=== PATIENT | male | born 1945 | race Caucasian/White ===

== ENCOUNTER 2017-10-19 17:58 | Inpatient (IN) | payer OTHER, MEDICARE ==
--- NOTE | 2017-10-19 18:30 | GHP ---
[f rep st] HISTORY AND PHYSICAL DATE OF ADMISSION: 10/19/2017 The patient is a 72-year-old male who had a prior colectomy and presented with an incisional ventral hernia. He had it repaired with Dr. Martínez today at the [facility] [place]. In addition to the known hernia, he was found to have several [place] cheese-like weaknesses along his incision and his he rnia repair became more extensive than originally planned. He was set up to go home, however, due to unmanaged pain, the decision was made to keep him overnight for pain management purposes. PAST MEDICAL HISTORY: Includes diverticulosis, status post partial colon resection; benign prostatic hypertrophy; hyperlipidemia; history of melanoma; history of memory loss; migraines; nontoxic multin odular goiter; obstructive sleep apnea; peptic ulcer disease; right rotator cuff repair. MEDICATIONS: Include Atrovent, Cialis, tamsulosin, and Valtrex. ALLERGIES: Sulfa. FAMILY HISTORY: Patient is . He works in the [employer] industry. His works in the [employer]. He does not smoke. REVIEW OF SYSTEMS: A 10-point review of systems negative aside from that in the HPI and past medical history. PHYSICAL EXAMINATION: GENERAL: Reveals a well-developed, well-nourished 72-year-old male in no acut e distress. HEENT: Normocephalic, atraumatic. Mucous membranes moist. No scleral icterus. CHEST: Clear to auscultation bilaterally. CARDIAC: Regular rate and rhythm. ABDOMEN: Soft with fresh w ell dressed incision. No shadowing. EXTREMITIES: Warm and dry. IMPRESSION: This is a 72-year-old male status post planned outpatient ventral hernia today who will be admitted for pain management. PLAN: Plan is to admit the patient for pain management. He will likely be able to go home in the ms rning. We will order IV anti-inflammatories and narcotics as needed as well as oral narcotics. He m ay have a regular diet. Dr. Martínez is aware of the admission and has seen the patient today. /[id number]/MODL
[2017-10-19] MEDS: KETOROLAC 15 MG/1 ML SDV IVP SCH ×2 (19:57→23:17)
[2017-10-19] MEDS: DOCUSATE SODIUM 100 MG CAP PO SCH (19:59)
[2017-10-19] MEDS: D5W 1/2 NS W/ 20 KCl/L 1,000 ML IV SCH (20:04)
[2017-10-19] MEDS: OXYCODONE/APAP 5/325 TAB PO PRN (22:29)
[2017-10-19] MEDS: HYDROmorphone HCL/NS/PF 0.4 MG/2 ML SYR IVP PRN (22:34)
[2017-10-20] MEDS: OXYCODONE/APAP 5/325 TAB PO PRN ×5 (00:49→20:08)
[2017-10-20] MEDS: HYDROmorphone HCL/NS/PF 0.4 MG/2 ML SYR IVP PRN ×3 (00:50→21:13)
[2017-10-20] MEDS: CYCLOBENZAPRINE 10 MG TAB PO PRN ×3 (02:59→17:16)
[2017-10-20] MEDS ORDERED: NALOXONE HCL 0.4 MG/ML INJ IVP PRN (03:03)
[2017-10-20] MEDS ORDERED: HYDROmorphONE/DILAUDID 6 MG/30 ML PCA IV PRN (03:03)
[2017-10-20] MEDS: ONDANSETRON 4 MG/2 ML VIAL IVP PRN ×3 (03:58→17:09)
[2017-10-20] MEDS: KETOROLAC 15 MG/1 ML SDV IVP SCH ×4 (06:15→23:52)
[2017-10-20] MEDS: DOCUSATE SODIUM 100 MG CAP PO SCH ×2 (08:35→20:14)
--- NOTE | 2017-10-20 11:44 | SOAPPROG ---
SOAP Progress Note Assessment/Plan: Assessment: 72-year-old male status post ventral hernia repair yesterday, admitted for pain control. 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 Patient reports he is still having episodic crampy abdominal pain. He did tolerate a small amount of regular breakfast. He denies fevers. Vital signs within normal limits Physical exam pleasant male in some mild discomfort during cramping episode, in chair Abdomen nondistended bandage dry soft to palpation. Plan: Possible discharge later today although pain control seems to be an issue still , will see the patient later today and follow-up on whether he tolerated lunch. 10/20/17 11:41 Objective: Vital Signs Temp Pulse Resp BP Pulse Ox 36.2 C 61 15 128/82 H 90 L 10/20/17 11:28 10/20/17 11:28 10/20/17 11:28 10/20/17 11:28 10/20/17 11:28 10/19/17 10/20/17 10/21/17 05:59 05:59 05:59 Intake Total 600 Output Total 1450 Balance -850 ICD10 Worksheet Patient Problems: Problems Problem Status Onset Hernia Acute - ICD10 Problem Qualifiers (1) Hernia
--- NOTE | 2017-10-20 12:07 | ASMTCASEMG ---
Living Arrangements What is your living Answers: With Spouse arrangement? Who do you live with? Type Of Residence What kind of residence do Answers: House you live in? Discharge Plan Comments Coordination Status Comments Notes: Pt is a 72 y/o man admitted for pain management post surgery open ventral hernia. Pt will most likely d/c when medically stable. No therapies ordered at this time. CM available for changes. Plan: Independent Date Signed: 10/20/2017 12:07 PM Electronically Signed By:BRAYAN Griffin
[2017-10-20] MEDS: D5W 1/2 NS W/ 20 KCl/L 1,000 ML IV SCH (19:22)
[2017-10-21] MEDS: HYDROmorphone HCL/NS/PF 0.4 MG/2 ML SYR IVP PRN ×5 (02:45→22:16)
[2017-10-21] MEDS: OXYCODONE/APAP 5/325 TAB PO PRN (04:53)
[2017-10-21] MEDS: D5W 1/2 NS W/ 20 KCl/L 1,000 ML IV SCH (04:55)
[2017-10-21] MEDS: ONDANSETRON 4 MG/2 ML VIAL IVP PRN ×2 (05:27→09:48)
[2017-10-21] MEDS: KETOROLAC 15 MG/1 ML SDV IVP SCH ×3 (05:31→17:48)
[2017-10-21] MEDS: DOCUSATE SODIUM 100 MG CAP PO SCH ×2 (08:45→21:05)
[2017-10-21] MEDS ORDERED: ENOXAPARIN 40 MG/0.4 ML SYR SC SCH (09:00)
--- NOTE | 2017-10-21 09:26 | SOAPPROG ---
SOAP Progress Note Assessment/Plan: Assessment: still distended with nausea/ wound ok/ 2-way shows ileus/ afebrile/ uo low Plan:increase iv/ ambulate/ check labs 10/21/17 09:25 Objective: Vital Signs Temp Pulse Resp BP Pulse Ox 35.7 C L 104 H 20 143/89 H 92 10/21/17 08:12 10/21/17 08:12 10/21/17 08:12 10/21/17 08:12 10/21/17 08:12 10/20/17 10/21/17 10/22/17 05:59 05:59 05:59 Intake Total 600 3200 Output Total 1450 300 Balance -850 2900 ICD10 Worksheet Patient Problems: Problems Problem Status Onset Hernia Acute
[2017-10-21] MEDS ORDERED: D5W 1/2 NS W/ 20 KCl/L 1,000 ML IV SCH (09:30)
[2017-10-21 11:00] LABS: ALANINE AMINOTRANSFERASE 25 IU/L (21-72); ALBUMIN 3.1 g/dL (3.5-5.0); ALKALINE PHOSPHATASE 46 IU/L (38-126); AMYLASE 880 IU/L (30-110); ANION GAP 15 mEq/L (8-16); ASPARTATE AMINOTRANSFERASE 29 IU/L (17-59); BILIRUBIN,TOTAL 1.3 mg/dL (0.1-1.4); BILIRUBIN-CONJUGATED 0.5 mg/dL (0.0-0.5); BILIRUBIN-UNCONJUGATED 0.8 mg/dL (0.0-1.1); CALCIUM 9.9 mg/dL (8.5-10.4); CARBON DIOXIDE 22 mEq/l (22-31); CHLORIDE 94 mEq/L (97-110); CREATININE 1.3 mg/dL (0.7-1.3); GLOMERULAR FILTRATION RATE 54; GLUCOSE 191 mg/dL (70-100); POTASSIUM 5.3 mEq/L (3.5-5.2); SODIUM 131 mEq/L (134-144); TOTAL PROTEIN 5.3 g/dL (6.3-8.2)
[2017-10-21 12:05] LABS: % IMMATURE GRANULOCYTES 0.5 % (0.0-1.1); ABSOLUTE IMMATURE GRANULOCYTES 0.04 10^3/uL (0-0.10); HEMATOCRIT 55.6 % (40.0-51.0); HEMOGLOBIN 19.3 g/dL (13.7-17.5); MEAN CELL HEMOGLOBIN 32.5 pg (27.9-34.1); MEAN CELL HEMOGLOBIN CONC. 34.7 g/dL (32.4-36.7); MEAN CELL VOLUME 93.8 fL (81.5-99.8); MEAN PLATELET VOLUME 9.6 fL (8.7-11.7); RED BLOOD CELL COUNT 5.93 10^6/uL (4.40-6.38); RED CELL DISTRIBUTION WIDTH 12.6 % (11.5-15.2)
[2017-10-21] MEDS: PANTOPRAZOLE SODIUM 40 MG VIAL IVP SCH ×2 (12:15→21:21)
[2017-10-21] MEDS: METOCLOPRAMIDE 10 MG/2 ML VIAL IVP SCH ×3 (12:15→23:50)
[2017-10-21 12:39] LABS: LACTATE DEHYDROGENASE 658 IU/L (313-618)
[2017-10-21] MEDS ORDERED: IOPAMIDOL (ISOVUE-300) 100 ML BTL ONE (19:32)
[2017-10-21 20:55] LABS: ADD MORPH? NO; ATYPICAL LYMPHOCYTE FLAG 0 (0-99); FRAGMENT RBC FLAG 0 (0-99); HEMATOCRIT 48.6 % (40.0-51.0); LIPEMIA HEMOLYSIS FLAG 90 (0-99); MEAN CELL HEMOGLOBIN 33.1 pg (27.9-34.1); MEAN CELL VOLUME 94.6 fL (81.5-99.8); MEAN PLATELET VOLUME 10.1 fL (8.7-11.7); PLATELET CLUMPS FLAG 0 (0-99); PLATELET COUNT 212 10^3/uL (150-400); RED BLOOD CELL COUNT 5.14 10^6/uL (4.40-6.38); RED CELL DISTRIBUTION WIDTH 12.7 % (11.5-15.2)
[2017-10-21 20:57] LABS: ADD DIFF? YES; ADD SCAN? NO; LEFT SHIFT FLG 300 (0-99)
[2017-10-21] MEDS ORDERED: ALBUMIN 5% 500 ML IV ONE (21:00)
[2017-10-21 21:30] LABS: ECHINOCYTES 1+; PLATELET ESTIMATE ADEQUATE (ADEQ)
[2017-10-21] MEDS ORDERED: ERTAPENEM 1 GM VIAL IVP SCH (22:00)
[2017-10-22 04:06] LABS: % IMMATURE GRANULYOCYTES 1.5 % (0.0-1.1); ABSOLUTE IMMATURE GRANULOCYTES 0.18 10^3/uL (0.00-0.10); ADD DIFF? NO; ADD MORPH? NO; ADD SCAN? YES; ATYPICAL LYMPHOCYTE FLAG 0 (0-99); FRAGMENT RBC FLAG 0 (0-99); HEMATOCRIT 52.8 % (40.0-51.0); HEMOGLOBIN 17.3 g/dL (13.7-17.5); LIPEMIA HEMOLYSIS FLAG 80 (0-99); MEAN CELL HEMOGLOBIN 32.6 pg (27.9-34.1); MEAN CELL HEMOGLOBIN CONCENTR. 32.8 g/dL (32.4-36.7); MEAN CELL VOLUME 99.4 fL (81.5-99.8); MEAN PLATELET VOLUME 10.6 fL (8.7-11.7); PLATELET CLUMPS FLAG 70 (0-99); PLATELET COUNT 140 10^3/uL (150-400); RED BLOOD CELL COUNT 5.31 10^6/uL (4.40-6.38); RED CELL DISTRIBUTION WIDTH 12.8 % (11.5-15.2)
[2017-10-22 04:09] LABS: LEFT SHIFT FLG 300 (0-99)
[2017-10-22 04:26] VITALS: O2SAT 95
[2017-10-22 04:33] LABS: SCAN POSITIVE
[2017-10-22] MEDS ORDERED: ALBUMIN 5% 500 ML IV ONE (05:00)
[2017-10-22 05:04] LABS: ECHINOCYTES 3+; PLATELET ESTIMATE DECREASED (ADEQ)
[2017-10-22 05:52] LABS: BASE EXCESS -24.8 mEq/L (-2.5-2.5); BICARBONATE 7 mEq/L (22-26); MEASURED OXYGEN SATURATION 90 % (92-95); PCO2 35 mmHg (34-38); PO2 92 mmHg (65-75)
[2017-10-22 05:57] LABS: TCO2 9 mEq/L (23-27)
[2017-10-22] MEDS: METOCLOPRAMIDE 10 MG/2 ML VIAL IVP SCH (06:05)
[2017-10-22] MEDS: HYDROmorphone HCL/NS/PF 0.4 MG/2 ML SYR IVP PRN (06:06)
[2017-10-22 06:17] VITALS: BP 131/98; PULSE 87; RESP 28; TEMP 97.4
[2017-10-22 06:20] LABS: INR 3.8 (0.83-1.16); PROTIME(PATIENT) 37.1 SEC (12.0-15.0)
[2017-10-22 06:21] LABS: APTT 56.5 SEC (23.0-38.0)
[2017-10-22] MEDS ORDERED: PROPOFOL 200 MG/20 ML VIAL ONE (06:31)
[2017-10-22] MEDS ORDERED: KETAMINE 100 MG/10 ML SYR ONE (06:31)
[2017-10-22] MEDS ORDERED: fentaNYL 100 MCG/2 ML INJ ONE (06:31)
[2017-10-22] MEDS ORDERED: ROCURONIUM 100 MG/10 ML VIAL ONE (06:33)
[2017-10-22] MEDS ORDERED: MIDAZOLAM 2 MG/2 ML VIAL ONE (07:03)
[2017-10-22] MEDS ORDERED: HUMAN PROTHROMBIN COMPLX IV ONE (07:30)
[2017-10-22] MEDS ORDERED: [UNRECOGNIZED DRUG - OTHER] IV ONE (07:30)
[2017-10-22] MEDS ORDERED: NOREPINEPHRINE/NS 500 ML IV ONE (08:00)
[2017-10-22] MEDS ORDERED: NOREPINEPHRINE BITARTRATE 4 MG in D5W 500 ML IV SCH (08:00)
[2017-10-22 08:16] LABS: BASE EXCESS -24.3 mEq/L (-2.5-2.5); BICARBONATE 7 mEq/L (22-26); MEASURED OXYGEN SATURATION 98 % (92-95); PCO2 34 mmHg (34-38); PO2 181 mmHg (65-75)
--- NOTE | 2017-10-22 08:21 | PDANEPAE ---
ANE History of Present Illness 72 yo M in acute shock of unknown etiology, 3days s/p ventral hernia repair, to OR emergently for ex lap ANE Past Medical History - Pulmonary History Hx Oxygen in Use at Home: No Hx Sleep Apnea: No Sleep Apnea Screening Result - Last Documented: Positive - Endocrine History Hx Diabetes: No ANE Review of Systems Review of Systems: - Exercise capacity Exercise capacity: >=4 METS ANE Patient History - Allergies Allergies/Adverse Reactions: Sulfa (Sulfonamide Antibiotics) Allergy (Verified 10/19/17 17:59) - Home Medications Home medications: home medication list seen and reviewed Home Medications: Fluticasone Nasal [Flonase Nasal Russell (RX)] 1 sprays EACHNARE DAILY 10/19/17 [ Last Taken 10/19/17] Ipratropium 0.03% Nasal [Atrovent 0.03% Nasal (*)] 2 sprays EACHNARE DAILY 10/19 [Last Taken 10/19/17] Multivitamins [Multivitamin (*)] 1 each PO DAILY 10/19/17 [Last Taken 10/16/17] Naproxen Sodium [Aleve 220 MG (*)] 220 mg PO DAILY PRN 10/19/17 [Last Taken Unknown] Tamsulosin HCl [Flomax 0.4 MG (*)] 0.4 mg PO DAILY 10/19/17 [Last Taken 10/17/17 ] oxyCODONE/APAP 5/325 [Percocet 5/325 (*)] 1 - 2 tab PO Q4H PRN 10/19/17 [Last Taken Unknown] - NPO status NPO Status: no food or drink >8 hours NPO Since - Liquids (Date): 10/19/17 NPO Since - Solids (Date): 10/19/17 - Anes Hx Anes Hx: no prior problems - Smoking Hx Smoking Status: Never smoked - Family Anes Hx Family Anes Hx: none ANE Labs/Vital Signs - Labs Result Diagrams: 10/22/17 03:54 10/21/17 10:25 - Vital Signs Blood Pressure: 131/98 Heart Rate: 87 Respiratory Rate: 28 O2 Sat (%): 95 Height: 177.8 cm Weight: 73.482 kg ANE Physical Exam - Airway Neck exam: FROM Mallampati Score: Class 2 Mouth exam: normal dental/mouth exam - Pulmonary Pulmonary: no respiratory distress, clear to auscultation - Cardiovascular Cardiovascular: regular rate and rhythym ANE Anesthesia Plan Anesthesia Plan: general endotracheal anesthesia (RSI) Lines/Monitors: arterial line, central line Urgent/Emergent Case: Anes eval completed preop but documented later for safe timely pt care
[2017-10-22 08:23] LABS: TCO2 8 mEq/L (23-27)
[2017-10-22 08:26] LABS: ASSIST CONTROL YES; O2 CONCENTRATIION 100 % (0-100); P/F RATIO 181 RATIO
[2017-10-22 08:28] LABS: END TIDAL CO2 40
[2017-10-22] MEDS ORDERED: NA BICARBONATE 50 MEQ/50 ML VIAL ONE (08:53)
[2017-10-22] MEDS ORDERED: INSULIN REGULAR HUMAN 100 UNIT/ML ONE ×3 (09:54→10:11)
[2017-10-22] MEDS ORDERED: ALBUMIN 5% 500 ML BOTTLE IV ONE (09:57)
[2017-10-22] MEDS ORDERED: SODIUM BICARBONATE 150 MEQ in D5W 1,000 ML IV SCH (10:00)
[2017-10-22 10:10] LABS: ABSOLUTE NRBC COUNT 0.04 10^3/uL (0-0.01); ADD DIFF? YES; ADD MORPH? NO; ATYPICAL LYMPHOCYTE FLAG 0 (0-99); FRAGMENT RBC FLAG 0 (0-99); HEMATOCRIT 25.1 % (40.0-51.0); HEMOGLOBIN 8.4 g/dL (13.7-17.5); LIPEMIA HEMOLYSIS FLAG 80 (0-99); MEAN CELL HEMOGLOBIN 32.8 pg (27.9-34.1); MEAN CELL HEMOGLOBIN CONCENTR. 33.5 g/dL (32.4-36.7); MEAN PLATELET VOLUME 11.1 fL (8.7-11.7); NRBC-AUTO% 0.3 % (0.0-0.2); PLATELET CLUMPS FLAG 30 (0-99); PLATELET COUNT 104 10^3/uL (150-400); RED BLOOD CELL COUNT 2.56 10^6/uL (4.40-6.38)
[2017-10-22] MEDS ORDERED: AMIODARONE HCL 150 MG/100 ML BAG (1.5 MG/ML) IV ONE (10:11)
[2017-10-22 10:22] LABS: ADD SCAN? NO; LEFT SHIFT FLG 300 (0-99)
[2017-10-22 10:31] LABS: ANION GAP 16 mEq/L (8-16); CALCIUM 6.5 mg/dL (8.5-10.4); CARBON DIOXIDE 17 mEq/l (22-31); CHLORIDE 108 mEq/L (97-110); CREATININE 2.8 mg/dL (0.7-1.3); GLOMERULAR FILTRATION RATE 22; SODIUM 141 mEq/L (134-144)
[2017-10-22 10:36] LABS: GLUCOSE < 20 mg/dL (70-100)
[2017-10-22 10:40] LABS: POTASSIUM 7.3 mEq/L (3.5-5.2)
[2017-10-22 10:46] LABS: ECHINOCYTES 3+; PLATELET ESTIMATE DECREASED (ADEQ)
[2017-10-22 10:47] LABS: LARGE PLATELETS PRESENT
[2017-10-22 11:07] LABS: CALCULATED OXYGEN SATURATION 82 % (92-95); O2 CONCENTRATIION 100 % (0-100)
[2017-10-22 11:08] LABS: CALCULATED OXYGEN SATURATION 65 % (92-95); O2 CONCENTRATIION 100 % (0-100)
[2017-10-22 11:08] LABS: CALCULATED OXYGEN SATURATION 51 % (92-95); O2 CONCENTRATIION 100 % (0-100)
[2017-10-22 11:08] LABS: CALCULATED OXYGEN SATURATION 66 % (92-95); O2 CONCENTRATIION 100 % (0-100)
[2017-10-22] MEDS ORDERED: NS ONE (11:30)
[2017-10-22] MEDS ORDERED: D25W 2.5 GM/10 ML SYR IVP ONE (11:30)
[2017-10-22] MEDS ORDERED: CALCIUM CHLORIDE 1 GM/10 ML INJ ONE (11:30)
[2017-10-22] MEDS ORDERED: D5W 250 ML BAG IV ONE (11:30)
[2017-10-22] MEDS ORDERED: D50W 25 GM/50 ML SYR IVP ONE ×3 (11:30)
[2017-10-22] MEDS ORDERED: EPINEPHrine 1 MG/10 ML SYR IVP ONE ×3 (11:30)
[2017-10-22] MEDS ORDERED: AMIODARONE HCL 150 MG/3 ML VIAL ONE ×2 (11:30)
[2017-10-22] MEDS ORDERED: SODIUM BICARBONATE 50 MEQ/50 ML SYR ONE ×2 (11:30)
[2017-10-22] MEDS ORDERED: MAGNESIUM SULFATE 1 GM/2 ML VIAL ONE (11:30)
--- NOTE | 2017-10-22 11:44 | POSTANESTH ---
Post Anesthetic Evaluation Cardiovascular Status: Other, See Comment Respiratory Status: Other, See Comment Level of Consciousness/Mental Status: Other, See Comment (pt after extended ACLS)
--- NOTE | 2017-10-22 13:15 | SOAPPROG ---
SOAP Progress Note Assessment/Plan: Assessment: still distended with nausea/ wound ok/ 2-way shows ileus/ afebrile/ uo low Plan:increase iv/ ambulate/ check labs 10/21/17 09:25 10/22/17 13:14 Seen early this a.m. end 6 15/patient looking much worse with tachypnea and some mild hypertension/abdomen remains distended and somewhat tender/risks and options fully discussed with the patient and family wish to proceed with foot or laparotomy for uncertain cause of peritonitis Objective: Vital Signs Temp Pulse Resp BP Pulse Ox 36.3 C 87 28 H 131/98 H 95 10/22/17 06:00 10/22/17 08:23 10/22/17 08:23 10/22/17 08:23 10/22/17 08:23 Microbiology 10/22/17 06:59 Gram Stain - Final Peritoneal Fluid - Swab Laboratory Results 10/22/17 09:50 10/22/17 09:50 10/21/17 10/22/17 10/23/17 05:59 05:59 05:59 Intake Total 3200 4068 Output Total 300 2100 Balance 2900 1968 PT 37.1 SEC (12.0-15.0) H 10/22/17 05:50 INR 3.80 (0.83-1.16) H 10/22/17 05:50 ICD10 Worksheet Patient Problems: Problems Problem Status Onset Hernia Acute
--- NOTE | 2017-10-22 13:19 | POSTOPPROG ---
Post Op Note Date of Operation: 10/22/17 Surgeon: Laci Martínez Fresh Work Wrapper Layer: Jerome Anesthesiologist: Jolene Anesthesia: GET(General Endotracheal) Pre-op Diagnosis: Peritonitis Post-op Diagnosis: Infarcted small intestine Indication: Pain, sepsis Procedure: Laparotomy, small-bowel resection extensive Findings: Infarcted small intestine from within 3 feet of the ligament of Treitz all Inf/Abcess present in the surg proc area at time of surgery?: Yes Depth: Organ Space EBL: Minimal Complications: None Drains: Wound Vac Specimen(s): Over 15 feet of small intestine
--- NOTE | 2017-10-23 14:43 | GHP ---
[f rep st] HISTORY AND PHYSICAL DATE OF ADMISSION: 10/20/2017 PULMONARY/CRITICAL CARE NOTE: REASON FOR CONSULTATION: Cardiopulmonary arrest. HISTORY: I was called to see the patient emergently upon arrival to the ICU from the operating room, with the anesthesiologist indicating the patient was in arrest upon arrival to the ICU. I responded immediately and found the patient to be pulseless with a rhythm that appeared to be ventricular fibr illation. CPR was begun. After several rounds of DC cardioversion attempts, epinephrine, and CPR, s tat laboratory results came back, which were most notable for a potassium of over 7, a blood glucose of less than 20, and a hematocrit of less than 15. In addition to continuous CPR, the patient was tr eated for his hypokalemia with sodium bicarbonate pushes, sodium bicarbonate drip, IV calcium, and gl ucose and insulin. His hypoglycemia was addressed with pushes of D50, and he was transfused a total of 4 units of packed red blood cells for his low hematocrit. He also received 2 units of FFP. Despi te approximately 90 minutes of continuous resuscitation efforts, the patient only briefly had a jane demi perfusing spontaneous rhythm. We were unable to get his potassium less than 6 or his hematocri t greater than 20 despite resuscitation efforts. His glucoses responded well to D50. Nonetheless, d ue to the lack of a perfusing rhythm, resuscitation efforts were ceased and the patient . I was present at the bedside and was directing resuscitation efforts throughout the entire time that the patient was in the ICU, with a total critical care time at the bedside of 90 minutes. /[id number]/MODL
== END 2017-10-22 11:01 | disposition expired | DRG 939 ==
LOC: F2W 19:50 → OBSVTOIN 10-20 16:24 → F2N 10-22 05:19
PROVIDERS: ADMIT Surgery; ATTEND Surgery
PROC: 0DB80ZZ Excision of Small Intestine, Open Approach (ICD-10-PCS; principal; 2017-10-22 06:30)
PROC: 30283B1 Transfusion of Nonautologous 4-Factor Prothrombin Complex Concentrate into Vein, Percutaneous Approach (ICD-10-PCS; 2017-10-22 06:30)
DX: G89.18 Other acute postprocedural pain (principal); I49.01 Ventricular fibrillation; K55.022 Diffuse acute infarction of small intestine; K65.9 Peritonitis, unspecified; E78.5 Hyperlipidemia, unspecified
CPT/HCPCS: 82947-QW; C9132; G0378; G0379; J0171; J0282; J1170; J1335; J1650; J1815; J1885; J2250; J2405; J2704; J2765; J3010; P9016; P9017; P9041; Q9967